=== PATIENT | female | born 1980 | race Caucasian/White ===

== ENCOUNTER 2018-08-16 14:45 | Emergency (ER) | payer OTHER ==
--- NOTE | 2018-08-16 15:17 | EDPHY ---
H & P Time Seen by Provider: 08/16/18 15:02 HPI/ROS: CHIEF COMPLAINT: Left knee pain HISTORY OF PRESENT ILLNESS: Patient is a 38-year-old female who injured her left knee. Patient was running down the stairs when she jumped over the last 2 steps. When she landed on her left knee she felt her knee though in word. She felt a pop. She attempt to stand on the knee and caused her pain and felt unstable. He has no numbness or tingling. No deformity. Pain is controlled at rest. REVIEW OF SYSTEMS: 10 systems were reveiwed and are negative with the exception of the elements mentioned in the history of present illness. Past Medical/Surgical History: Negative Past surgical history: Negative Social history: Patient does not smoke Smoking Status: Never smoked Physical Exam: General Appearance: Alert and no distress. Head: Pupils equal. Normal. Respiratory: No respiratory distress. Cardiac: regular rate and rhythm. Extremities: Patient's left knee appears normal. There is no significant swelling. There is no notable ligamentous instability on exam. She is neurovascular intact distally. Skin: No rashes or lesions. Neuro: Alert. Normal mood and affect. Constitutional: Initial Vital Signs Temperature (C) 36.7 C 08/16/18 14:50 Heart Rate 85 08/16/18 14:50 Respiratory Rate 16 08/16/18 14:50 Blood Pressure 123/77 H 08/16/18 14:50 O2 Sat (%) 98 08/16/18 14:50 O2 Delivery Mode Room Air Allergies/Adverse Reactions: No Known Allergies Allergy (Unverified 03/09/11 22:09) Home Medications: Medication Instructions Recorded 1 tab PO DAILY 05/22/13 Md Reconciled 05/23/13 05/23/13 Medical Decision Making - Diagnostics Imaging Results: Imaging Impressions Knee X-Ray 08/16/18 15:02 Impression: No evidence for acute osseous abnormality left knee. ED Course/Re-evaluation: In the emergency department I discussed possible etiologies with the patient. I answered all her questions. X-ray of her left knee was ordered. Left knee x-ray: Please refer the dictated report. No acute disease noted. The patient was placed in a knee immobilizer splint. Patient was given crutches. She will follow up with Dr. Warner. Prior to leaving the patient was neurovascular intact distally. She was given warnings prior to leaving. Differential Diagnosis: My differential includes but is not limited to fracture, dislocation, sprain, contusion, vascular injury Departure - Departure Disposition: Home, Routine, Self-Care Clinical Impression: Left knee sprain Qualifiers: Encounter type: initial encounter Involved ligament of knee: unspecified ligament Qualified Code(s): S83.92XA - Sprain of unspecified site of left knee, initial encounter Condition: Good Instructions: Knee Sprain (ED) Additional Instructions: Wear knee immobilizer for comfort. Use crutches as needed. You can weightbear as tolerated. You been given follow-up information for Dr. Warner from orthopedics. Call to make an appointment. Referrals: Alia De Los Santos MD [Primary Care Provider] - 5-7 days, call for appt. Kieran Warner MD [Medical Doctor] - 5-7 days, call for appt.
[2018-08-16 16:05] VITALS: BP 124/81
== END 2018-08-16 16:03 | disposition home or self-care (01) ==
DX: S83.92XA Sprain of unspecified site of left knee, initial encounter (principal); W10.9XXA Fall (on) (from) unspecified stairs and steps, initial encounter; Y93.39 Activity, other involving climbing, rappelling and jumping off; Y92.9 Unspecified place or not applicable; Y99.9 Unspecified external cause status